=== PATIENT | female | born 1990 | race Caucasian/White ===

== ENCOUNTER 2024-02-26 07:52 | Inpatient (IN) ==
[2024-02-26] MEDS ORDERED: LIDOCAINE 1% LOCAL 20 ML VIAL INFIL PRN (07:56)
[2024-02-26] MEDS ORDERED: OXYTOCIN 30 UNITS/NSS 30 UNITS/500 ML BAG IV PRN ×2 (07:56→23:44)
[2024-02-26] MEDS ORDERED: DEXTROSE 50% 50 ML SYRINGE IV PRN (08:24)
[2024-02-26] MEDS ORDERED: DEXTROSE 5% 1,000 ML IV PRN (08:24)
[2024-02-26] MEDS ORDERED: SODIUM CHLORIDE 0.9% 1,000 ML IV PRN (08:24)
[2024-02-26] MEDS ORDERED: INSULIN REGULAR 250 UNITS in SODIUM CHLORIDE 0.9% 247.5 ML IV PRN (08:24)
[2024-02-26] MEDS: SODIUM CHLORIDE 0.9% 1,000 ML IV SCH (08:25)
[2024-02-26 08:40] LABS: Hematocrit (blood only) 36.1 % (37.0-47.0); Hemoglobin 12.2 g/dl (12.0-16.0); Mean Corpuscular Hgb Conc 33.8 g/dL (32.0-36.0); Mean Corpuscular Volume 85.7 fL (80.0-100.0); Mean Platelet Volume 10.8 fL (9.4-12.4); Platelet Count 230 K/uL (130-400); RDW Coefficient of Variation 14.6 % (11.5-14.5); RDW Standard Deviation 45.2 fL (36.4-46.3); Red Blood Count 4.21 M/uL (4.20-5.40); White Blood Count 11.08 K/ul (4.8-10.8)
--- NOTE | 2024-02-26 08:52 | History & Physical Report ---
Date of Service February 26, 2024 Assessment & Plan (1) Carrier of group B Streptococcus: (2) Obesity affecting : (3) Insulin controlled gestational diabetes mellitus (GDM) during : (4) Gestational diabetes mellitus (GDM) affecting , antepartum: Plan -GBS positive; Penicillin given. -Uterine Carcamo was placed without difficulty. -Pitocin 30 U in 500ML NS given - category 1 Tracing. - Monitor progress of labor. -Desired Epidural -Continue PRN Medications - Rh negative . will give Rhogam. Admission and Anticipated Discharge Date Admission Date: February 26, 2024 History of Present Illness Primary Care Provider: Evan Espana DO Patient is a 34 yo female A0 currently at 39+4WGA with an ADOLFO 02/29/2024 as determined by LMP who is here for induction. Her was complicated by Gestational Diabetes Mellitus(GDM) and was taking Insulin Presence of contractions contractions; movement present; no fluid loss ; no bloody show External FHT and external uterine monitors used; category I tracing; normal FHT variability Had regular appointments with OB. Labs: Blood type: O negative Antibody screen:Negative (12/18/2023) Hgb: 12.2 (today) Hct: 36.1 (today) WBC: 11.08 (today) Plt: 230(today) Rubella: Immune VDRL/RPR: Non reactice Gonorrhea: Negative Chlamydia:Negative HIV: Non reactive HbSAg: Non reactive (07/19/2023) GBS: Positive Allergies Allergy/AdvReac Type Severity Reaction Status Date / Time Antihistamines - Alkylamine Allergy Shakiness Verified 02/26/24 08:28 Home Medications Medication Instructions Recorded Confirmed Type 21-iron fu-folic acid 1 tab PO DAILY 07/12/23 02/25/24 History [ Complete] sertraline 25 mg tablet See Rx Instructions .Route 10/14/23 02/26/24 Rx .COMPLEX #135 tabs acetone (urine) test (Ketone Urine #50 ea 10/28/23 02/25/24 Rx Test strips) blood sugar diagnostic (OneTouch #150 ea 10/28/23 02/25/24 Rx Verio test strips) blood-glucose meter (OneTouch #1 ea 10/28/23 02/25/24 Rx Verio Reflect Meter) lancets 33 gauge (OneTouch Delica #150 ea 10/28/23 02/25/24 Rx Plus Lancet) pen needle, diabetic 32 gauge x #100 ea 01/03/24 02/25/24 Rx 5/32" (BD Ultra-Fine Floresita Pen Needle) insulin NPH isoph U-100 human 100 20 unit subcut .at bed time 02/14/24 02/25/24 History unit/mL (3 mL) subcutaneous pen (Novolin N FlexPen) Past Med/Surg History Problem List (Updated 02/26/24 @ 11:06 by Savanah Pate, RN) Carrier of group B Streptococcus Obesity affecting Insulin controlled gestational diabetes mellitus (GDM) during Gestational diabetes mellitus (GDM) affecting , antepartum Headache in , antepartum Need for rhogam due to Rh negative mother Supervision of normal first Anxiety and depression Routine gynecological examination Avulsion of finger tip (Acute) Medical History (Updated 02/26/24 @ 11:06 by Savanah Pate RN) History of chicken pox Surgical History Status post wisdom tooth extraction Family History Grandfather Diabetes Grandmother (Paternal) Dementia Denies family history of Ovarian cancer Prostate cancer Heart disease Myocardial infarction Breast cancer Lung cancer Colorectal cancer Stroke Social History Smoking Status: Never smoker Second Hand Exposure: No; Do You Dip or Chew Tobacco: No; Tobacco Cessation Education Requested by Patient: No Hx Alcohol Use: No Hx Substance Use: No Preferred Language: Chinese Communication Ability: Effective Visual Impairment: Limited Hearing Ability: Normal Supervisor Die Casting Required: No Beliefs That Will Affect Care: None marital status: marital status details: Rico Denise (34) [phone] Current Living Situation: Spouse Current Living Situation Comment: Rico- current occupational status: employed 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 Denies SOB, difficulty breathing, chest pain, palpitations, and chest pressure. Denies breast pain. Denies dysuria. Denies headache or changes in vision. Physical Exam Physical Exam: General: Alert and oriented. No acute distress CV: Regular rate and rhythm. No murmurs. Respiratory: CTA bilaterally. No rhonchi, wheezes, or crackles. No increased work of breathing. Abdomen: Gravid; Soft, nontender upon palpation Uterus: Firm, Cephalic presentation on Alexandre maneuver Pelvic: Dilated 2 cm; Effacement 80%; Station-2 (9:02 AM) per Dr. Hernandez Lower extremities: No LE edema. No deep calf pain. Alex's negative bilaterally. Genitourinary: Patient accepted cervical balloon placement. The lighted speculum was placed in vagina and the cervix was visualized. A [place] catheter was then inserted into the cervix to the internal os. 40 cc of water were then instilled into the cervical balloon. The catheter was then placed on traction and secured to the patient's left thigh. She tolerated the procedure well. Results & Data Results & Data Vital Signs (Past 12 Hours) Vital Signs Temp Pulse Resp BP 02/26/24 08:33 36.8 C 100 H 18 131/64 02/26/24 08:26 100 H 131/64 Supervising Physician Co-Signing Physician Notes Resident Physician Supervision Note: I interviewed and examined the patient. Discussed with Dr. Cerda and agree with findings and plan as documented in the note. Any exceptions or clarifications are listed here: cervical balloon placed without difficulty and placed on traction and secured to her left thigh. she tolerated the procedure well. Documented By: Ramonita Hernandez MD, FACOG
[2024-02-26] MEDS ORDERED: SERTRALINE HCL 50 MG TABLET PO SCH (09:00)
[2024-02-26] MEDS: PENICILLIN GK 6 MU in SODIUM CHLORIDE 0.9% 250 ML IV STA (09:04)
[2024-02-26] MEDS: OXYTOCIN 30 UNITS/NSS 30 UNITS/500 ML BAG IV PRN (09:43)
[2024-02-26] MEDS: PENICILLIN GK 3 MU in DEXTROSE 5% 100 ML IV PRN (12:23)
--- NOTE | 2024-02-26 12:45 | Labor Progress Brief Note ---
Date of Service February 26, 2024 Subjective Reason For Note: Change In Status cervical balloon was expelled at 1030 having more regular contractions with pitocin but not painful cervix exam 4cm/80/-2 FHT- Category 1 Assessment & Plan Admission and Anticipated Discharge Date Admission Date: February 26, 2024 Results & Data Vital Signs (Past 12 Hours) Vital Signs Temp Pulse Resp BP 02/26/24 12:18 104 H 102/58 L 02/26/24 12:00 16 02/26/24 12:00 97.9 F 16 02/26/24 11:50 93 H 114/63 02/26/24 11:18 98 H 114/73 02/26/24 10:51 113 H 130/71 02/26/24 09:31 86 119/71 02/26/24 08:33 98.2 F 100 H 18 131/64 02/26/24 08:26 100 H 131/64 Coding Level of Care Code 07373 SUB INP/OBS CARE 03/14MIN
[2024-02-26] MEDS ORDERED: fentaNYL citrate PF 100 MCG/2 ML VIAL EPI PRN (13:46)
[2024-02-26] MEDS ORDERED: BUPIVACAINE 0.25% PF 30 ML VIAL EPI PRN (13:46)
[2024-02-26] MEDS ORDERED: fentaNYL citrate PF 100 MCG/2 ML VIAL EPI STA (13:46)
[2024-02-26] MEDS ORDERED: ROPIVACAINE 0.5% PF 5 MG/ML 20 ML VIAL EPI PRN (13:46)
[2024-02-26] MEDS ORDERED: BUPIVACAINE 0.25% PF 30 ML VIAL EPI STA (13:46)
[2024-02-26] MEDS ORDERED: LIDOCAINE 2% MPF LOCAL 5 ML VIAL EPI PRN (13:46)
[2024-02-26] MEDS ORDERED: diphenhydrAMINE 50 MG/ML VIAL IV PRN (13:46)
[2024-02-26] MEDS ORDERED: SODIUM CHLORIDE 0.9% PF INJ 10 ML VIAL EPI STA (13:46)
[2024-02-26] MEDS ORDERED: SODIUM CHLORIDE 0.9% PF INJ 10 ML VIAL EPI PRN (13:46)
[2024-02-26] MEDS ORDERED: NALOXONE HCL 0.4 MG/1 ML VIAL/CARP IV PRN (13:46)
[2024-02-26] MEDS ORDERED: ePHEDrine sulfate 50 MG/ML AMP IV PRN (13:46)
[2024-02-26] MEDS ORDERED: NALBUPHINE HCL INJ 10 MG/ML AMP IV PRN (13:46)
[2024-02-26] MEDS ORDERED: NALOXONE HCL 1 MG in SODIUM CHLORIDE 0.9% 1,000 ML IV PRN (13:46)
[2024-02-26] MEDS ORDERED: LIDOCAINE 2%/EPINEPHRINE 1:200,000 20 ML PF EPI STA (13:46)
[2024-02-26] MEDS ORDERED: ONDANSETRON INJ 2 MG/ML 2 ML VIAL IV PRN (13:46)
--- NOTE | 2024-02-26 13:47 | Anesthesiology Consultation ---
Date of Service February 26, 2024 Assessment & Plan ASA ASA3 Proposed Anesthesia Anesthesia Type: Labor Epidural Risk / Benefits Reviewed With: PT / POA / Parent / Guardian, Accepts Plan and Informed Consent Obtained History Height/Weight Height: 5 ft 7 in Weight: 114.759 kg Allergies Allergy/AdvReac Type Severity Reaction Status Date / Time Antihistamines - Alkylamine Allergy Shakiness Verified 02/26/24 08:28 Medications Home Medications Medication Instructions Recorded Confirmed Last Taken 21-iron fu-folic acid 1 tab PO DAILY 07/12/23 02/25/24 02/13/24 [ Complete] sertraline 25 mg tablet See Rx Instructions .Route 10/14/23 02/26/24 02/25/24 21:00 .COMPLEX #135 tabs acetone (urine) test (Ketone Urine #50 ea 10/28/23 02/25/24 Unknown Test strips) blood sugar diagnostic (OneTouch #150 ea 10/28/23 02/25/24 Unknown Verio test strips) blood-glucose meter (OneTouch #1 ea 10/28/23 02/25/24 Unknown Verio Reflect Meter) lancets 33 gauge (OneTouch Delica #150 ea 10/28/23 02/25/24 Unknown Plus Lancet) pen needle, diabetic 32 gauge x #100 ea 01/03/24 02/25/24 Unknown 32" (BD Ultra-Fine Floresita Pen Needle) insulin NPH isoph U-100 human 100 20 unit subcut .at bed time 02/14/24 02/25/24 02/13/24 unit/mL (3 mL) subcutaneous pen (Novolin N FlexPen) Active Medications Generic Name Dose Route Start Last Admin Trade Name Freq PRN Reason Stop Dose Admin Penicillin G Potassium 3 mu/ 106 mls @ 100 mls/hr 02/26/24 10:57 02/26/24 12:23 Dextrose IV 03/07/24 10:56 100 mls/hr Q4H PRN Administration GBS(+) Until Delivery Oxytocin 30 units in 500 mls @ 12 mls/hr 02/26/24 08:24 02/26/24 12:30 Pitocin 30 Units/Nss IV 02/28/24 08:23 0.72 units/hr .Q24H PRN 12 mls/hr Labor Induction/Augmentation Titration Protocol 0.72 UNITS/HR Sodium Chloride 1,000 mls @ 50 mls/hr 02/26/24 08:30 02/26/24 14:06 Nss IV 02/27/24 08:29 50 mls/hr .Q20H PEDRO Titration Past Medical History Medical History (Updated 02/26/24 @ 11:06 by Savanah Pate RN) History of chicken pox Exercise / Class Metabolic Activity II 4-5 Yardwork/Stairs/Walk up hill Past Family History Family History Grandfather Diabetes Grandmother (Paternal) Dementia Denies family history of Ovarian cancer Prostate cancer Heart disease Myocardial infarction Breast cancer Lung cancer Colorectal cancer Stroke Past Surgical History Surgical History Status post wisdom tooth extraction Past Anesthesia History No Hx of Anesthesia Complications and No Family Hx of Anesthesia Complications History of PONV No Hx of PONV and No Hx of Motion Sickness Social History Smoking Status: Never smoker Do You Dip or Chew Tobacco: No Hx Alcohol Use: No Hx Substance Use: No Review of Systems denies fever/cough/ colds/ chest pain/ SOB/ STEFFANIE denies STEFFANIE Physical Exam Vital Signs Last Vital Signs Temp 36.6 C 02/26/24 12:00 Pulse 109 H 02/26/24 14:28 Resp 16 02/26/24 12:00 BP 124/64 02/26/24 14:28 Pulse Ox 98 02/26/24 14:28 ENMT Mouth: no TMJ abnormality and no dentition abnormality Thyromental Distance: > or= 3.5 Finger Breadths Mallampati Class: II Neck neck extension not limited Respiratory normal respiratory effort; no respiratory distress Auscultation: lungs clear to auscultation bilaterally Cardiovascular Rate/Rhythm: regular rate and regular rhythm Neurologic moves all extremities Psychiatric Orientation: alert and oriented x 3 Testing Laboratory Results 02/26/24 08:09 Blood Type O Negative 02/26/24 08:09 Antibody Screen NEGATIVE 02/26/24 08:09 02/26/24 09:51 POC Glucose 97
[2024-02-26] MEDS: LIDOCAINE 2%/EPINEPHRINE 1:200,000 20 ML PF ONE (14:24)
[2024-02-26] MEDS: BUPIVACAINE 0.25% PF 30 ML VIAL ONE (14:24)
[2024-02-26] MEDS: fentaNYL citrate PF 100 MCG/2 ML VIAL ONE (14:25)
[2024-02-26] MEDS: SODIUM CHLORIDE 0.9% PF INJ 10 ML VIAL ONE (14:26)
[2024-02-26] MEDS: ePHEDrine sulfate 50 MG/ML AMP ONE (14:26)
[2024-02-26] MEDS: fentANYL 2 MCG/ML BUPIVacaine 0.125%-NSS 100ML BAG ONE (14:33)
[2024-02-26] MEDS: CALCIUM CARBONATE 500 MG CHEWABLE TAB PO PRN (15:11)
[2024-02-26] MEDS: fentANYL 2 MCG/ML BUPIVacaine 0.125%-NSS 100ML BAG EPI PRN (20:06)
[2024-02-26] MEDS ORDERED: oxyCODONE/ACETAMINOPHEN 5mg/325mg TAB PO PRN (23:44)
[2024-02-26] MEDS ORDERED: bisacodyL 10 MG SUPP PR PRN (23:44)
[2024-02-26] MEDS ORDERED: DIPHTHER/TETAN/PERTUS Vaccine (Tdap, Adol/Adult) 0.5mL IM ONE (23:44)
[2024-02-26] MEDS ORDERED: ACETAMINOPHEN 325 MG TAB PO PRN (23:44)
[2024-02-26] MEDS ORDERED: HYDROCORTISONE ACETATE 25 MG SUPP PR PRN (23:44)
--- NOTE | 2024-02-27 00:20 | Delivery Summary ---
Vaginal Delivery Summary Date of Service February 27, 2024 Vaginal Delivery Summary and 1st Degree LAC (perineal) Patient is a 34-year-old 1 para 0 female who presented at 39-5/7 weeks for induction of labor because of GDM on insulin. The induction was begun with placement of a cervical balloon and Pitocin induction per labor delivery protocol. Was expelled approximately 2 hours after insertion. She received effective epidural analgesia. Membranes were ruptured for clear fluid. She progressed to full dilation and pushed effectively over intact perineum for delivery of a viable male infant. After the head was delivered, there was a nuchal cord that could not be reduced and therefore was clamped and cut. The rest the infant then delivered without maternal effort. He was placed on mother's abdomen for further attention and drying. He initially had poor tone and respiratory effort and was therefore taken to the baby bed for further evaluation and drying. After stimulation, he was vigorous crying and moving all 4 limbs. After cord blood was obtained, the placenta was expressed intact with three-vessel cord. bleeding was controlled with dilute Pitocin and fundal massage. A first-degree perineal laceration was repaired with 3-0 chromic in usual fashion. Bladder was emptied via straight catheter for 100 cc of urine. QBL was 401 cc. Mother and were doing well after delivery. [facility] Vaginal Delivery Charge Delivery Type Details: and 1st Degree LAC (perineal)
[2024-02-27 06:21] LABS: Hematocrit (blood only) 29.9 % (37.0-47.0); Hemoglobin 10.1 g/dl (12.0-16.0); Mean Corpuscular Hemoglobin 29.4 pg (25.0-34.0); Mean Corpuscular Hgb Conc 33.8 g/dL (32.0-36.0); Mean Corpuscular Volume 86.9 fL (80.0-100.0); Mean Platelet Volume 11.1 fL (9.4-12.4); Platelet Count 203 K/uL (130-400); RDW Coefficient of Variation 14.6 % (11.5-14.5); RDW Standard Deviation 46.4 fL (36.4-46.3); Red Blood Count 3.44 M/uL (4.20-5.40)
--- NOTE | 2024-02-27 07:25 | Obstetrical Progress Note ---
Date of Service February 27, 2024 Assessment & Plan (1) Normal spontaneous vaginal delivery: (2) Insulin controlled gestational diabetes mellitus (GDM) during : Plan Both mom and baby doing well. Observe today. Admission and Anticipated Discharge Date Admission Date: February 26, 2024 Supervising Physician Co-Signing Physician Notes Resident Physician Supervision Note: I interviewed and examined the patient. Discussed with Dr. Cerda and agree with findings and plan as documented in the note. Any exceptions or clarifications are listed here: [None] Documented By: Ramonita Hernandez MD, FACOG Subjective #1PPD Day following for at 39+4 week POG. No active complains Both mom and baby doing well. Pain: Mild, intermittent Lochia: Moderate Diet: Regular Ob diet Gas: Passing, No abdominal distension Peeing: Normal, no bladder distension Ambulation: Normally Review of Systems Review of Systems: No SOB, chest pain, leg pain No dizziness, headache, palpitation No Blurring of vision , fever Physical Exam Physical Exam: General: Alert and oriented. No acute distress. CVS: S1 S2+ No murmurs, regular rhythm. Respiratory: CTA bilaterally. No rhonchi, wheezes, or crackles. No increased work of breathing. Abdomen: Bowel sound +. Soft, nontender Uterus: Fundus firm and palpable few cm below the umbilicus. Lower extremities: No LE edema. No deep calf pain. Results & Data Vital Signs (Past 12 Hours) Vital Signs Temp Pulse Pulse Resp BP BP Pulse Ox 02/27/24 02:30 36.5 C 68 18 130/72 02/27/24 01:36 18 02/27/24 01:36 109 H 110/66 02/27/24 01:21 101 H 106/64 02/27/24 01:06 36.5 C 18 02/27/24 01:06 102 H 129/65 02/27/24 00:51 96 H 132/69 02/27/24 00:36 18 02/27/24 00:36 106 H 132/64 02/27/24 00:21 18 02/27/24 00:21 100 H 135/62 02/27/24 00:06 18 02/27/24 00:06 92 H 143/81 H 02/26/24 23:51 18 02/26/24 23:51 103 H 150/59 H 02/26/24 23:38 106 H 98 02/26/24 23:36 18 02/26/24 23:36 98 H 138/64 02/26/24 23:33 108 H 97 02/26/24 23:28 119 H 95 02/26/24 23:23 123 H 98 02/26/24 23:21 114 H 141/59 H 02/26/24 23:18 121 H 99 02/26/24 23:13 117 H 98 02/26/24 23:08 104 H 99 02/26/24 23:05 121 H 92 02/26/24 23:03 104 H 98 02/26/24 22:58 108 H 99 02/26/24 22:53 112 H 99 02/26/24 22:52 117 H 88 L 02/26/24 22:48 134 H 100 02/26/24 22:43 120 H 99 02/26/24 22:38 129 H 97 02/26/24 22:36 107 H 103/59 L 02/26/24 22:33 101 H 99 02/26/24 22:28 107 H 100 02/26/24 22:23 106 H 98 02/26/24 22:22 104 H 108/58 L 02/26/24 22:18 98 02/26/24 22:18 121 H 02/26/24 22:18 122 H 94 02/26/24 22:13 104 H 98 02/26/24 22:08 114 H 98 02/26/24 22:06 107 H 131/61 02/26/24 22:03 106 H 99 02/26/24 21:58 111 H 99 02/26/24 21:53 121 H 99 02/26/24 21:51 109 H 142/78 H 02/26/24 21:48 122 H 98 02/26/24 21:43 107 H 99 02/26/24 21:38 119 H 100 02/26/24 21:37 108 H 141/80 H 02/26/24 21:35 18 02/26/24 21:35 37.3 C 18 02/26/24 21:33 107 H 99 02/26/24 21:28 96 H 99 02/26/24 21:23 96 H 99 02/26/24 21:21 98 H 137/79 02/26/24 21:18 94 H 100 02/26/24 21:13 98 H 99 02/26/24 21:08 90 99 02/26/24 21:06 93 H 136/77 02/26/24 21:03 89 100 02/26/24 20:58 92 H 100 02/26/24 20:53 90 100 02/26/24 20:52 95 H 141/83 H 02/26/24 20:48 89 100 02/26/24 20:43 97 H 99 02/26/24 20:38 94 H 98 02/26/24 20:36 93 H 138/84 02/26/24 20:33 99 H 100 02/26/24 20:28 101 H 100 02/26/24 20:23 97 H 100 02/26/24 20:21 97 H 141/80 H 02/26/24 20:18 97 H 100 02/26/24 20:13 104 H 100 02/26/24 20:08 100 H 100 02/26/24 20:06 102 H 150/84 H 02/26/24 20:03 115 H 100 02/26/24 19:58 98 H 100 02/26/24 19:53 96 H 100 02/26/24 19:51 108 H 164/92 H 02/26/24 19:48 116 H 100 02/26/24 19:43 113 H 100 02/26/24 19:38 108 H 100 02/26/24 19:33 105 H 100 02/26/24 19:28 109 H 100 O2 Del Method 02/27/24 02:30 Room Air 02/27/24 01:36 02/27/24 01:36 02/27/24 01:21 02/27/24 01:06 02/27/24 01:06 02/27/24 00:51 02/27/24 00:36 02/27/24 00:36 02/27/24 00:21 02/27/24 00:21 02/27/24 00:06 02/27/24 00:06 02/26/24 23:51 02/26/24 23:51 02/26/24 23:38 02/26/24 23:36 02/26/24 23:36 02/26/24 23:33 02/26/24 23:28 02/26/24 23:23 02/26/24 23:21 02/26/24 23:18 02/26/24 23:13 02/26/24 23:08 02/26/24 23:05 02/26/24 23:03 02/26/24 22:58 02/26/24 22:53 02/26/24 22:52 02/26/24 22:48 02/26/24 22:43 02/26/24 22:38 02/26/24 22:36 02/26/24 22:33 02/26/24 22:28 02/26/24 22:23 02/26/24 22:22 02/26/24 22:18 02/26/24 22:18 02/26/24 22:18 02/26/24 22:13 02/26/24 22:08 02/26/24 22:06 02/26/24 22:03 02/26/24 21:58 02/26/24 21:53 02/26/24 21:51 02/26/24 21:48 02/26/24 21:43 02/26/24 21:38 02/26/24 21:37 02/26/24 21:35 02/26/24 21:35 02/26/24 21:33 02/26/24 21:28 02/26/24 21:23 02/26/24 21:21 02/26/24 21:18 02/26/24 21:13 02/26/24 21:08 02/26/24 21:06 02/26/24 21:03 02/26/24 20:58 02/26/24 20:53 02/26/24 20:52 02/26/24 20:48 02/26/24 20:43 02/26/24 20:38 02/26/24 20:36 02/26/24 20:33 02/26/24 20:28 02/26/24 20:23 02/26/24 20:21 02/26/24 20:18 02/26/24 20:13 02/26/24 20:08 02/26/24 20:06 02/26/24 20:03 02/26/24 19:58 02/26/24 19:53 02/26/24 19:51 02/26/24 19:48 02/26/24 19:43 02/26/24 19:38 02/26/24 19:33 02/26/24 19:28 (2) Insulin controlled gestational diabetes mellitus (GDM) during Trimester: third trimester Qualified Code(s): O24.414 - Gestational diabetes mellitus in , insulin controlled
--- NOTE | 2024-02-27 10:04 | Anesthesia Procedure Note ---
Date of Service February 27, 2024 Anesthesia Post Epidural Note Vital Signs Vital Signs: Temp Pulse Resp BP Pulse Ox O2 Del Method 36.7 C 98 H 20 103/66 99 Room Air 02/27/24 07:30 02/27/24 07:30 02/27/24 07:30 02/27/24 07:30 02/27/24 07:30 02/27/24 07:30 Pain Intensity Abdomen: Pain Intensity: 2 Notes Mental Status: alert / awake / arousable and participated in evaluation Patient Amnestic to Procedure: No Nausea / Vomiting: adequately controlled Pain: adequately controlled Airway Patency, RR, SpO2: stable & adequate BP & HR: stable & adequate Hydration State: stable & adequate Neuraxial Anesthesia: was administered and sensory block resolved Anesthetic Complications: no major complications apparent and Pt Satisfied with anesthetic care Epidural: Removed without complications and With tip intact
[2024-02-27] MEDS: IBUPROFEN 600 MG TAB PO PRN (10:23)
[2024-02-27] MEDS: PRENATAL VITAMIN 1 TAB PO SCH (10:23)
[2024-02-27] MEDS: DOCUSATE SODIUM 100 MG CAP PO SCH (10:23)
[2024-02-27] MEDS: guaiFENesin 600 MG TABCR PO SCH (10:25)
[2024-02-27] MEDS ORDERED: Nursing to Pharmacy Communication SCH (10:45)
[2024-02-27] MEDS: SERTRALINE HCL 50 MG TABLET PO SCH (21:22)
[2024-02-27] MEDS: bisacodyL 5 MG TABEC PO SCH (21:22)
[2024-02-28 04:08] VITALS: RESP 16
--- NOTE | 2024-02-28 06:35 | Obstetrical Progress Note ---
Date of Service February 28, 2024 Assessment & Plan (1) Normal spontaneous vaginal delivery: (2) Insulin controlled gestational diabetes mellitus (GDM) during : Plan Both mom and baby doing well. Patient wants to go home at evening. Will discharge at evening when patient feels ready. Admission and Anticipated Discharge Date Admission Date: February 26, 2024 Supervising Physician Co-Signing Physician Notes Resident Physician Supervision Note: I interviewed and examined the patient. Discussed with Dr. Cerda and agree with findings and plan as documented in the note. Any exceptions or clarifications are listed here: PPD2 s/p , Doing well. DC home today Documented By: Calli Singh MD Subjective #1PPD Day following for at 39+4 week POG. No active complains Both mom and baby doing well. Pain: Mild, intermittent Lochia: Moderate Diet: Regular Ob diet Gas: Passing, No abdominal distension Peeing: Normal, no bladder distension Ambulation: Normally Review of Systems Review of Systems: No SOB, chest pain, leg pain No dizziness, headache, palpitation No Blurring of vision , fever Physical Exam Physical Exam: General: Alert and oriented. No acute distress. CVS: S1 S2+ No murmurs, regular rhythm. Respiratory: CTA bilaterally. No rhonchi, wheezes, or crackles. No increased work of breathing. Abdomen: Bowel sound +. Soft, nontender Uterus: Fundus firm and palpable few cm below the umbilicus. Lower extremities: No LE edema. No deep calf pain. Results & Data Vital Signs (Past 12 Hours) Vital Signs Temp Pulse Resp BP O2 Del Method 02/28/24 04:00 36.5 C 86 16 120/85 Room Air 02/27/24 20:30 37.2 C 88 18 130/77 Room Air (2) Insulin controlled gestational diabetes mellitus (GDM) during Trimester: third trimester Qualified Code(s): O24.414 - Gestational diabetes mellitus in , insulin controlled
[2024-02-28 06:48] LABS: Hematocrit (blood only) 30.6 % (37.0-47.0); Hemoglobin 10.2 g/dl (12.0-16.0)
[2024-02-28 08:01] VITALS: BP 134/81; PULSE 96; TEMP 98.2; O2SAT 98
--- NOTE | 2024-02-28 11:53 | Communication Note ---
Date of Service: February 28, 2024 Notified by nursing that patient with concern of feeling funny, high blood sugar. Upon arrival in room, pt feeling much better. Thinks her sx were due to taking in alot of carbs this am (was gdm on insulin during preg) and when bsg checked was in 160s and this worried her. Apparently long hx of anxiety and she has been evaluated for numbing sx in her arm to face that has been determined can be associated with her anxiety, pcp is Dr. Espana. She feels that moving around and getting out of bed helped her and now just feels that she injested too many carbs and that made her feel funny. We spoke of her concerns and worries in general. She did not feel I needed to do an exam. Her vs are stable. She will plan to be dc'd later today but will let us know if other concerns arise. Spoke to her as well.
[2024-02-28] MEDS: BENZOCAINE 20% SPRY 85 APPLN/85 GM CAN EXT PRN (17:18)
== END 2024-02-28 18:40 | disposition home or self-care (01) | DRG 807 ==
LOC: 4S1 07:52 → 4E1 02-27 02:27